=== PATIENT | male | born 1995 | race Caucasian/White ===

== ENCOUNTER → 2022-10-04 | Outpatient (CLI) | payer OTHER ==
[2022-10-04 15:16] LABS: APPEARANCE, URINE CLEAR (CLEAR); BACTERIA, URINE AUTO NEGATIVE (NEGATIVE); BILIRUBIN, URINE AUTO NEGATIVE (NEGATIVE); BLOOD, URINE BLOOD NEGATIVE (NEGATIVE); COLOR, URINE STRAW (YELLOW); GLUCOSE, URINE (UA) AUTO NEGATIVE (NEGATIVE); KETONE, URINE AUTO NEGATIVE (NEGATIVE); LEUKOCYTE ESTERASE, URINE AUTO NEGATIVE (NEGATIVE); NITRITE, URINE AUTO NEGATIVE (NEGATIVE); PROTEIN, URINE AUTO NEGATIVE (NEGATIVE); RBC, URINE AUTO 0 /HPF (0-3); SQUAMOUS EPITHELIAL CELL UR AU 0 /HPF (0-6); UROBILINOGEN, URINE AUTO 0.2 mg/dL (0.0-2.0); WBC, URINE AUTO 1 /HPF (0-3)
== END ==
LOC: M PLAIMG 12:16
PROVIDERS: ATTEND Nurse Practitioner Family
DX: R30.0 Dysuria (principal)

== ENCOUNTER 2023-01-15 15:40 | Inpatient (IN) | payer OTHER ==
[~2023-01-15] VITALS: Ht 170.2 cm; Wt 62.4 kg
[2023-01-15] MEDS ORDERED: NEUR100C PO (17:08)
[2023-01-15] MEDS ORDERED: OXCA600T8 PO (17:08)
[2023-01-15] MEDS ORDERED: ARIP1TAB4 PO (17:08)
[2023-01-15 17:29] LABS: HEMATOCRIT 43.6 % (42.0-52.0); HEMOGLOBIN 14.8 g/dl (13.5-17.5); MEAN CORPUSCULAR HEMOGLOBIN 28.8 pg (27.0-33.0); MEAN CORPUSCULAR HGB CONC 33.9 g/dl (32.0-36.5); PLATELET COUNT, AUTOMATED 376 10^3/uL (150-450); RED BLOOD COUNT 5.13 10^6/uL (4.30-6.10); WHITE BLOOD COUNT 8.6 10^3/uL (4.0-10.0)
[2023-01-15] MEDS ORDERED: HOME MED LIST COMPLETE! XX SCH (17:30)
[2023-01-15 17:48] LABS: AMPHETAMINES LEVEL URINE NEGATIVE (NEGATIVE); BARBITURATES URINE NEGATIVE (NEGATIVE); BENZODIAZEPINES URINE NEGATIVE (NEGATIVE); CANNABINOIDS URINE NEGATIVE (NEGATIVE); COCAINE METABOLITE URINE NEGATIVE (NEGATIVE); METHADONE URINE NEGATIVE (NEGATIVE); OPIATES URINE NEGATIVE (NEGATIVE); PHENCYCLIDINE URINE NEGATIVE (NEGATIVE)
[2023-01-15 17:50] LABS: ETHYL ALCOHOL (ETHANOL) < 0.003 % (0.000-0.010)
[2023-01-15 17:51] LABS: ACETAMINOPHEN LEVEL < 2.0 UG/ML (10.0-20.0)
[2023-01-15 17:52] LABS: ALBUMIN 4.7 G/DL (3.2-5.2); ALKALINE PHOSPHATASE 75 U/L (46-116); ALT/SGPT 20 U/L (7.0-40); AST/SGOT 10 U/L (<34); BILIRUBIN,DIRECT 0.3 MG/DL (<0.4); BILIRUBIN,TOTAL 0.7 MG/DL (0.3-1.2); BLOOD UREA NITROGEN 19 MG/DL (9-23); CALCIUM LEVEL 9.4 MG/DL (8.5-10.1); CARBON DIOXIDE LEVEL 26 MMOL/L (20-31); CHLORIDE LEVEL 104 MMOL/L (98-107); CREATININE FOR GFR 0.87 MG/DL (0.70-1.30); GLOMERULAR FILTRATION RATE > 60.0 (>60); GLUCOSE, FASTING 90 MG/DL (60-100); POTASSIUM SERUM 4.1 MMOL/L (3.5-5.1); SALICYLATE LEVEL < 3.0 MG/DL (<30); SODIUM LEVEL 140 MMOL/L (136-145); TOTAL PROTEIN 7.6 G/DL (5.7-8.2)
[2023-01-15 17:54] LABS: THYROID STIMULATING HORMONE 1.694 uIU/ML (0.55-4.78)
[2023-01-15] MEDS ORDERED: NICOTINE 21MG/24HR 1 EA TRANSDERMAL TD ONE (20:55)
[2023-01-15] MEDS ORDERED: IBUPROFEN 400MG TAB PO PRN (22:00)
[2023-01-15] MEDS ORDERED: diphenhydrAMINE 25MG CAP PO PRN (22:00)
[2023-01-15] MEDS ORDERED: MOM 30ML SUSPENSION UDC PO PRN (22:00)
[2023-01-15] MEDS ORDERED: MAALOX 30 ML SUSP *UDC PO PRN (22:00)
[2023-01-15] MEDS ORDERED: ACETAMINOPHEN TAB 650MG DOSE (2X325MG) PO PRN (22:00)
[2023-01-15] MEDS: GABAPENTIN 400MG CAP PO SCH (22:19)
[2023-01-15] MEDS: OXcarbazepine 300 MG TAB PO SCH (22:19)
[2023-01-15 22:35] VITALS: BP 115/72; TEMP 97.9; O2SAT 99
[2023-01-16 05:52] VITALS: BP 118/64; TEMP 97; O2SAT 97
[2023-01-16] MEDS ORDERED: LIDOCAINE 5% (LIDODERM) PATCH TD ONE (09:30)
[2023-01-16] MEDS ORDERED: traMADol 50 MG TAB PO ONE (09:30)
[2023-01-16] MEDS: OXcarbazepine 300 MG TAB PO SCH ×2 (09:47→21:04)
[2023-01-16] MEDS: ARIPiprazole 2 MG TAB PO SCH (09:47)
[2023-01-16 17:51] VITALS: BP 130/83; TEMP 97.2; O2SAT 97
[2023-01-16] MEDS: GABAPENTIN 400MG CAP PO SCH (21:04)
[2023-01-17 07:02] VITALS: BP 114/56; TEMP 97.5; O2SAT 97
[2023-01-17] MEDS: ARIPiprazole 2 MG TAB PO SCH (07:56)
[2023-01-17] MEDS: OXcarbazepine 300 MG TAB PO SCH ×2 (07:57→20:50)
[2023-01-17] MEDS ORDERED: LIDO1PAD13 TOP (10:52)
[2023-01-17] MEDS ORDERED: TRAZ-252 PO (10:52)
[2023-01-17 18:22] VITALS: BP 105/60; TEMP 98.5; O2SAT 100
[2023-01-17] MEDS: GABAPENTIN 400MG CAP PO SCH (20:50)
[2023-01-18 07:00] VITALS: BP 116/63; TEMP 97.2; O2SAT 97
[2023-01-18] MEDS: ARIPiprazole 2 MG TAB PO SCH (08:41)
[2023-01-18] MEDS: OXcarbazepine 300 MG TAB PO SCH ×2 (08:41→20:14)
[2023-01-18] MEDS: NICOTINE POLACRILEX 2 MG GUM PO PRN ×2 (13:09→17:59)
[2023-01-18 18:03] VITALS: BP 131/88; TEMP 97.8
[2023-01-18] MEDS: GABAPENTIN 400MG CAP PO SCH (20:14)
[2023-01-18] MEDS: traZODone 50 MG TAB PO PRN (20:15)
[2023-01-19 06:17] VITALS: BP 107/53; TEMP 97.1; O2SAT 95
[2023-01-19] MEDS: OXcarbazepine 300 MG TAB PO SCH ×2 (08:30→20:15)
[2023-01-19] MEDS: ARIPiprazole 2 MG TAB PO SCH (08:30)
[2023-01-19] MEDS: NICOTINE POLACRILEX 2 MG GUM PO PRN ×3 (08:59→18:55)
[2023-01-19 18:00] VITALS: BP 114/74; TEMP 99.4; O2SAT 98
[2023-01-19] MEDS: GABAPENTIN 400MG CAP PO SCH (20:15)
[2023-01-19] MEDS: traZODone 50 MG TAB PO PRN (20:15)
[2023-01-20 06:29] VITALS: BP 108/59; TEMP 97.1; O2SAT 97
[2023-01-20] MEDS: OXcarbazepine 300 MG TAB PO SCH ×2 (07:52→20:01)
[2023-01-20] MEDS: ARIPiprazole 2 MG TAB PO SCH (07:52)
[2023-01-20] MEDS: NICOTINE POLACRILEX 2 MG GUM PO PRN ×3 (07:53→20:02)
[2023-01-20 18:00] VITALS: BP 124/84; TEMP 98.3; O2SAT 99
[2023-01-20] MEDS: traZODone 50 MG TAB PO PRN (20:02)
[2023-01-20] MEDS: GABAPENTIN 400MG CAP PO SCH (20:02)
[2023-01-21 06:03] VITALS: BP 113/60; TEMP 97.2; O2SAT 97
[2023-01-21] MEDS: ARIPiprazole 2 MG TAB PO SCH (08:59)
[2023-01-21] MEDS: OXcarbazepine 300 MG TAB PO SCH (08:59)
[2023-01-21] MEDS: NICOTINE POLACRILEX 2 MG GUM PO PRN (09:00)
== END 2023-01-21 13:02 | disposition home or self-care (01) | DRG 885 ==
LOC: M ED 15:40 → M ED INP 21:56 → M PSY 22:41
PROVIDERS: ADMIT Student in an Organized Health Care Education/Training Program; ATTEND Student in an Organized Health Care Education/Training Program
DX: F31.81 Bipolar II disorder (principal); R45.851 Suicidal ideations; Z62.811 Personal history of psychological abuse in childhood; Z62.810 Personal history of physical and sexual abuse in childhood; F41.9 Anxiety disorder, unspecified; F17.200 Nicotine dependence, unspecified, uncomplicated; Z79.899 Other long term (current) drug therapy; Z20.822 Contact with and (suspected) exposure to COVID-19; Z91.52 Personal history of nonsuicidal self-harm